=== PATIENT | female | born 1995 | race Two or more races ===

== ENCOUNTER 2023-06-28 09:35 | Emergency (ER) | payer MEDICAID ==
[~2023-06-28] VITALS: Ht 162.6 cm; Wt 56.7 kg
[2023-06-28] MEDS ORDERED: LORAZEPAM 1 MG TABLET PO ONE (10:00)
[2023-06-28] MEDS ORDERED: LORAZEPAM 1 MG TABLET ONE (10:23)
[2023-06-28 10:59] VITALS: BP 128/93; TEMP 98.2; O2SAT 100
== END 2023-06-28 11:00 | disposition home or self-care (01) ==
LOC: ER 09:46
DX: R00.2 Palpitations (principal); F41.9 Anxiety disorder, unspecified

== ENCOUNTER 2024-02-10 11:42 | Emergency (ER) | payer BC, MEDICAID ==
[~2024-02-10] VITALS: Ht 162.6 cm; Wt 56.7 kg
[2024-02-10] MEDS ORDERED: LIDOCAINE 1%-EPI 1:100,000 20 ML VIAL ONE (12:44)
[2024-02-10] MEDS ORDERED: dexaMETHasone SOD PHOSPHATE 1 ML ONE (12:47)
[2024-02-10] MEDS: dexaMETHasone SOD PHOSPHATE 10 MG/ML VIAL MC ONE (12:52)
[2024-02-10] MEDS: TETRACAINE/BENZOCAINE/BUTAMBEN 56 GM SPRAY TP ONE (13:20)
[2024-02-10] MEDS: LIDOCAINE 1%-EPI 1:100,000 50 ML VIAL IJ ONE (13:20)
[2024-02-10 13:57] VITALS: BP 110/74; TEMP 98.1; O2SAT 98
== END 2024-02-10 13:57 | disposition home or self-care (01) ==
LOC: ER 11:55
DX: J36 Peritonsillar abscess (principal)
CPT/HCPCS: 42700; 99284; J1100; J3490